=== PATIENT | male | born 1940 | race Native Hawaiian/Other Pacific Islander ===

== ENCOUNTER 2017-04-10 07:12 | Outpatient (CLI) | payer OTHER ==
[2017-04-10 08:40] LABS: PLATELET COUNT 93 K/uL (142-355)
[2017-04-10 09:09] LABS: POTASSIUM 4.4 mmol/L (3.6-5.2); SODIUM 141 mmol/L (136-145)
== END 2017-04-10 21:09 | disposition home or self-care (01) ==
LOC: LABW 07:12
PROVIDERS: Internal Medicine
DX: I49.3 Ventricular premature depolarization (principal); E78.00 Pure hypercholesterolemia, unspecified; I34.0 Nonrheumatic mitral (valve) insufficiency; I10 Essential (primary) hypertension; Z85.46 Personal history of malignant neoplasm of prostate; R73.01 Impaired fasting glucose
CPT/HCPCS: 36415; 80053; 80061; 81000; 82043; 82570; 83036; 84443; 85027

== ENCOUNTER 2017-04-19 15:08 | Outpatient (CLI) | payer OTHER ==
[2017-04-19 15:54] LABS: PARTIAL THROMBOPLASTIN TIME 21.9 SECONDS (24.5-33.6)
== END 2017-04-19 16:10 | disposition home or self-care (01) ==
LOC: LABW 15:08
PROVIDERS: Internal Medicine
DX: D69.6 Thrombocytopenia, unspecified (principal)
CPT/HCPCS: 36415; 85049; 85610; 85730

== ENCOUNTER 2017-12-16 14:28 | Day surgery (SDC) | payer OTHER ==
[~2017-12-16] VITALS: Ht 175.3 cm; Wt 63.5 kg
== END 2017-12-16 16:30 ==
LOC: OR 14:28
PROC: 3E0233Z Introduction of Anti-inflammatory into Muscle, Percutaneous Approach (ICD-10-PCS; principal; 2017-12-16)
PROC: 3E023BZ Introduction of Anesthetic Agent into Muscle, Percutaneous Approach (ICD-10-PCS; 2017-12-16)
DX: M54.89 Other dorsalgia (principal); M79.604 Pain in right leg
CPT/HCPCS: J3490

== ENCOUNTER 2020-08-01 12:32 | Day surgery (SDC) | payer OTHER | END 2020-08-01 13:05 | LOC: OR 12:32 | PROVIDERS: ATTEND Internal Medicine | PROC: 3E0233Z Introduction of Anti-inflammatory into Muscle, Percutaneous Approach (ICD-10-PCS; principal; 2020-08-01) | PROC: 3E023BZ Introduction of Anesthetic Agent into Muscle, Percutaneous Approach (ICD-10-PCS; 2020-08-01) | DX: G57.01 Lesion of sciatic nerve, right lower limb (principal) | CPT/HCPCS: J1020; J3490; Q9966 ==